=== PATIENT | female | born 1960 | race Caucasian/White ===

== ENCOUNTER → 2016-03-20 | Outpatient (CLI) | payer OTHER ==
--- NOTE | 2016-03-20 12:07 | XR ---
EXAMINATION TYPE: XR tibia fibula RT DATE OF EXAM: 03/20/2016 11:58 AM CLINICAL HISTORY: Trauma crushing injury with pain TECHNIQUE: Two views of the right leg are obtained. COMPARISON: None. FINDINGS: There is no acute fracture or dislocation seen in the right tibia or fibula. The right kn ee joint appears within normal limits. The Achilles tendon appears grossly intact on plain film. Soft tissue density suggests some fluid in the Kager's triangle deep to Achilles tendon. Accessory ossicl e posterior to the talus is noted. Small inferior calcaneal spur is present. The overlying soft tissu e appears unremarkable. IMPRESSION: There is no acute fracture or dislocation seen in the right tibia or fibula.
== END | disposition home or self-care (01) ==
LOC: RADXRMAIN 11:17
PROVIDERS: ATTEND Emergency Medicine
DX: S80.11XA Contusion of right lower leg, initial encounter (principal); X58.XXXA Exposure to other specified factors, initial encounter

== ENCOUNTER → 2016-06-03 | Outpatient (CLI) | payer BC ==
--- NOTE | 2016-06-03 11:44 | WWHP ---
DATE OF SERVICE: 06/03/2016 CHIEF COMPLAINT: The patient is here for her routine gynecologic exam and mammogram. HPI: This is a 55-year-old G2, P2 with an LMP of 2010. She is without gynecologic complaints and denies any postmenopausal bleeding. She has a known abdominal wall hernia and states that it really has not caused any significant problems. The patient states she does notice it feels a little larger when she lifts things. PAST MEDICAL HISTORY: Hypothyroidism, chronic hypertension, cardiac arrhythmia, seasonal allergies, sinus problems and right lower quadrant abdominal wall hernia. MEDICATIONS: 1. Synthroid 88 mcg daily. 2. Lisinopril 20 mg daily. 3. Flonase daily. 4. Calcium 500 mg daily. 5. Vitamin D 8000 units daily. 6. Vitamin E 400 units daily. 7. Garlic supplement daily. ALLERGIES: PENICILLIN, SULFA, and CODEINE. 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 FAMILY HISTORY: Unchanged from the 2016 H&P. REVIEW OF SYSTEMS: She has lost about 30 pounds over the last year with diet and exercise. She denies respiratory, cardiac, or GI problems. PHYSICAL EXAM: Blood pressure 131/84. Height 5 feet 6 inches. Weight 208 pounds. Temperature 98.2, pulse 75. This a well-developed, well-nourished white female who is alert and oriented x3 in no acute distress. HEENT is within normal limits. NECK: Supple without mass or thyromegaly. CHEST AND LUNGS: Clear to auscultation. HEART: Regular rate and rhythm. Breasts are without mass or discharge. Axillary exam is negative for adenopathy. BACK: Negative for CVA tenderness. ABDOMEN: Mildly obese with some firmness in the right lower quadrant consistent with her abdominal wall hernia and this unchanged from her exam last year. The rest of the abdomen is soft and nontender, without palpable masses. PELVIC EXAM: External genitalia reveals mild atrophy without lesions. Cervix and vagina reveal mild to moderate atrophy without lesions. The cervix appears slightly atrophic and the cervix is also somewhat stenotic secondary to atrophy. There is no evidence of prolapse. Bimanual exam: The uterus is midposition, nongravid size and nontender. There are no palpable adnexal masses or tenderness. Rectovaginal exam is negative for mass or tenderness and is negative for occult blood. EXTREMITIES: Nontender. IMPRESSION: 1. A 55-year-old menopausal female with normal gynecologic exam. 2. Right lower quadrant abdominal wall hernia, which is minimally symptomatic and stable from last year. 3. Family history of breast cancer. PLAN: 1. Pap smear was performed. 2. Self breast examination was discussed. 3. Mammogram will be done today. 4. Osteoporosis prevention was discussed. 5. She states she will plan on seeing Dr. Her, her surgeon, for the right abdominal wall hernia. 6. She will return in one year.
--- NOTE | 2016-06-04 10:47 | MM ---
Reason for exam: screening (asymptomatic). Last mammogram was performed 1 year ago. History: Patient is postmenopausal. Family history of breast cancer in sister at age 66 and premenopausal breast cancer in sister at age 50. Benign excisional biopsy of the right breast, August 07, 1999. Cyst aspiration of the right breast. Physical Findings: A clinical breast exam by your physician is recommended on an annual basis and results should be correlated with mammographic findings. MG 3D Screening Mammo W/Cad Bilateral CC and MLO view(s) were taken. Prior study comparison: May 29, 2015, bilateral MG 3d screening mammo w/cad. September 12, 2014, right breast MG diagnostic mammo RT w CAD. The breast tissue is heterogeneously dense. This may lower the sensitivity of mammography. Focal asymmetry in the upper outer right breast. This finding is changed when compared with previous exams. ASSESSMENT: Incomplete: need additional imaging evaluation, BI-RAD 0 RECOMMENDATION: Special view mammogram of the right breast. If lesion persists on supplemental views, image directed ultrasound is recommended. [facility] will attempt to contact patient to return for supplemental views and ultrasound if indicated.
== END ==
LOC: WWCWWP 09:16
PROVIDERS: ATTEND Obstetrics & Gynecology
DX: Z12.31 Encounter for screening mammogram for malignant neoplasm of breast (principal)
CPT/HCPCS: 77063; G0202

== ENCOUNTER → 2016-06-06 | Outpatient (CLI) | payer BC ==
--- NOTE | 2016-06-06 11:38 | MM ---
Reason for exam: additional evaluation requested from abnormal screening. Last mammogram was performed less than 1 month ago. History: Patient is postmenopausal. Family history of breast cancer in sister at age 66 and premenopausal breast cancer in sister at age 50. Benign excisional biopsy of the right breast, August 07, 1999. Cyst aspiration of the right breast. Physical Findings: Nurse did not find any significant physical abnormalities on exam. MG 3D Work Up W/Cad RT LM, spot compression CC, and spot compression MLO view(s) were taken of the right breast. Prior study comparison: June 03, 2016, bilateral MG 3d screening mammo w/cad. May 29, 2015, bilateral MG 3d screening mammo w/cad. Asymmetric breast tissue in the right upper outer quadrant. There is no discrete abnormality. These results were verbally communicated with the patient and result sheet given to the patient on 06/06/16. ASSESSMENT: Benign, BI-RAD 2 RECOMMENDATION: Return to routine screening mammogram schedule for both breasts.
== END | disposition home or self-care (01) ==
LOC: RADMAMWWP 10:22
PROVIDERS: ATTEND Obstetrics & Gynecology
DX: R92.8 Other abnormal and inconclusive findings on diagnostic imaging of breast (principal); Z80.3 Family history of malignant neoplasm of breast
CPT/HCPCS: G0206; G0279

== ENCOUNTER → 2017-06-30 | Outpatient (CLI) | payer BC ==
[2017-06-30 10:43] VITALS: BP 113/76; PULSE 72; RESP 16; TEMP 97.5; BMI 33.9
--- NOTE | 2017-06-30 11:40 | P.HPOB ---
History of Present Illness H&P Date: 06/30/17 Chief Complaint: The patient is here for her routine gynecologic exam and mammogram. This is a 56-year-old with an LMP of 2010. The patient is without gynecologic complaints and denies any postmenopausal bleeding. The patient has a family history of breast cancer in 2 sisters. One recently tested positive for CHEK2 gene mutation and was negative for BRCA testing according to the patient. The patient is interested in going for counseling and possible testing for this gene mutation. She does have a history of the right lower quadrant abdominal wall hernia. It has been causing her more problems with heavy lifting. She states the area can be very sore after heavy lifting. She has an appointment to see Dr. Larry Arreola on 07/23/2017. Review of Systems The patient's weight has been stable over the last year. She denies respiratory , cardiac, or G.I. problems. Past Medical History Past Medical History: Hypertension, Supraventricular Tachycardia (SVT), Thyroid Disorder (Hypothyroid) Additional Past Medical History / Comment(s): Right lower quadrant abdominal wall hernia. 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 She has had to section deliveries. History of Any Multi-Drug Resistant Organisms: None Reported Past Surgical History: Adenoidectomy, Breast Surgery (Benign breast lump removed in 1996), Section, Tonsillectomy Additional Past Surgical History / Comment(s): Colonoscopy 2009. Past Psychological History: No Psychological Hx Reported Smoking Status: Never smoker Past Alcohol Use History: Rare (0 to 3 per month.) Past Drug Use History: None Reported Additional History: She has been since 1980. 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 - Past Family History Sister(s) Family Medical History: Cancer (Breast cancer in 2 sisters. One tested positive for CHEK2 gene mutation.) Father Family Medical History: Cancer (Prostate) Mother Family Medical History: Cancer (Uterine cancer), Diabetes Mellitus Medications and Allergies Home Medications Medication Instructions Recorded Confirmed Type Levothyroxine Sodium [Synthroid] 120 mcg PO DAILY 12/07/14 06/30/17 History Lisinopril [Zestril] 20 mg PO DAILY 12/07/14 06/30/17 History Cholecalciferol (Vitamin D3) 10,000 unit PO DAILY 06/30/17 06/30/17 History [Vitamin D3] Metoprolol Succinate (ER) [Toprol 06/30/17 History XL] Allergies Allergy/AdvReac Type Severity Reaction Status Date / Time codeine Allergy Rash/Hives Verified 12/07/14 05:53 Penicillins Allergy Rash/Hives Verified 12/07/14 05:53 Sulfa (Sulfonamide Allergy Rash/Hives Verified 12/07/14 05:53 Antibiotics) Exam - Vital Signs Vital signs: Vital Signs Temp Pulse Resp BP 06/30/17 10:30 97.5 F L 72 16 113/76 Intake and Output 06/29/17 06/30/17 06/30/17 22:59 06:59 14:59 Other: Weight 95.254 kg Height 5'6", BMI 33.9. This is a well-developed well-nourished white female who is alert and oriented times 3 in no acute distress. HEENT: Within normal limits. NECK: Supple without mass or thyromegaly. CHEST AND LUNGS: Clear to auscultation. HEART: Regular rate and rhythm. BREASTS: Are without mass or discharge. AXILLARY EXAM: Negative for adenopathy. BACK: Negative for CVA tenderness. ABDOMEN: the abdomen is mildly obese. It is soft, nontender, with a right lower quadrant firmness consistent with an abdominal wall hernia. This is unchanged from last year. There are no other palpable masses.. PELVIC EXAM: Normal external genitalia with mild atrophy. Cervix and vagina appear normal mild atrophy. There is no unusual discharge. There is no evidence of prolapse. The uterus is midposition, nongravid size and nontender. There are no palpable adnexal masses or tenderness. RECTAL EXAM: rectovaginal exam is negative for mass or tenderness and is negative for occult blood. EXTREMITIES: Nontender. IMPRESSION: 1. 56-year-old menopausal female with normal gynecologic exam. 2. Right lower quadrant abdominal wall hernia which is stable on exam, but is slightly more symptomatic with heavy lifting. 3. Strong family history of breast cancer in 2 sisters. One sister tested positive for CHEK2 gene mutation. If the patient has this gene mutation, this would increase her risk for breast cancer and colon cancer. PLAN: 1. Pap smear was deferred since she had a normal one last year. 2. Screening mammogram will be done today. 3. We had a long discussion regarding her family history for breast cancer and the family history of the CHEK2 gene mutation. The patient would like to go for counseling and possible testing for this gene mutation. She is requesting a referral to [facility] cancer genetics department. We will make this referral. 4. Osteoporosis prevention was discussed. 5. She has an appointment to see Dr. Larry Arreola on 07/23/2017 for evaluation of her abdominal wall hernia. 6. She will return in one year.
--- NOTE | 2017-07-01 11:04 | MM ---
Reason for exam: screening (asymptomatic). Last mammogram was performed 1 year and 1 month ago. History: Patient is postmenopausal. Family history of breast cancer in sister at age 66 and premenopausal breast cancer in sister at age 50. Benign excisional biopsy of the right breast, August 07, 1999. Cyst aspiration of the right breast. Physical Findings: A clinical breast exam by your physician is recommended on an annual basis and results should be correlated with mammographic findings. MG 3D Screening Mammo W/Cad Bilateral CC and MLO view(s) were taken. Prior study comparison: June 06, 2016, right breast MG 3d work up w/cad RT. June 03, 2016, bilateral MG 3d screening mammo w/cad. The breast tissue is heterogeneously dense. This may lower the sensitivity of mammography. Benign calcifications. There is no discrete abnormality. No significant changes when compared with prior studies. ASSESSMENT: Benign, BI-RAD 2 RECOMMENDATION: Routine screening mammogram of both breasts in 1 year.
== END | disposition home or self-care (01) ==
LOC: WWCWWP 10:29
PROVIDERS: ATTEND Obstetrics & Gynecology
DX: Z12.31 Encounter for screening mammogram for malignant neoplasm of breast (principal)
CPT/HCPCS: 77063; 77067

== ENCOUNTER → 2018-07-23 | Outpatient (CLI) | payer OTHER ==
--- NOTE | 2018-07-23 07:56 | US ---
EXAMINATION TYPE: US liver DATE OF EXAM: 07/23/2018 COMPARISON: CT abdomen pelvis dated 03/27/2014 CLINICAL HISTORY: D18.03 Hemangioma of intraabdominal structure. Liver hemangioma EXAM MEASUREMENTS: Liver Length: 16.1 cm Gallbladder Wall: 0.2 cm CBD: 0.3 cm Right Kidney: 11.2 x 4.1 x 5.2cm Pancreas: visualized portions appear wnl Liver: hyperechoic area adjacent to GB = 4.1 x 3.0 x 3.5cm, probable hemangioma. This was seen on e CT of 2014 and measured up to 4.1 cm at that time as well when measured in a similar fashion. Gallbladder: multiple stones Evidence for sonographic Rodriguez's sign: no CBD: appears wnl Right Kidney: no evidence of hydronephrosis IMPRESSION: 1. Stable size of the hepatic hemangioma as seen on the CT of 03/17/2014. 2. Cholelithiasis without sonographic evidence of acute cholecystitis.
== END | disposition home or self-care (01) ==
LOC: RADUSWWP 06:49
PROVIDERS: ATTEND Family Medicine
DX: D18.03 Hemangioma of intra-abdominal structures (principal); K80.20 Calculus of gallbladder without cholecystitis without obstruction
CPT/HCPCS: 76705

== ENCOUNTER → 2018-08-06 | Day surgery (SDC) | payer OTHER ==
[2018-08-04 11:10] VITALS: BMI 34.2
[~2018-08-06] MED LIST: LACTATED RINGERS 1,000 ML IV SCH; LIDOCAINE 1% 20 ML VIAL (10MG/ML) FOR IV START INTRADERMA ONE; PROPOFOL 10 MG/ML 20 ML VIAL IV ONE
[2018-08-06 12:28] VITALS: TEMP 98.5
--- NOTE | 2018-08-06 12:52 | P.PCN ---
Date of Procedure: 08/06/18 Procedure(s) Performed: BRIEF HISTORY: Patient is a 57-year-old pleasant white female scheduled for an elective colonoscopy as a part of screening for colorectal neoplasia. PROCEDURE PERFORMED: Colonoscopy. PREOPERATIVE DIAGNOSIS: Screening for colon cancer.. IV sedation per Anesthesia. PROCEDURE: After informed consent was obtained, the patient, was brought into the endoscopy unit. IV sedation was administered by Anesthesia under continuous monitoring. Digital rectal examination was normal. Initially the Olympus CF-160 flexible video colonoscope was then inserted in the rectum, gradually advanced into the cecum without any difficulty. Careful examination was performed as the scope was gradually being withdrawn. Ileocecal valve and the appendiceal orifice were visualized and appeared normal. Prep was excellent. Mucosa of the cecum, ascending colon, transverse colon, descending colon, sigmoid colon, and rectum appeared normal. Retroflexion was performed in the rectum and no lesions were seen. The patient tolerated the procedure well. IMPRESSION: Normal-appearing colon from rectum to cecum with no evidence of colorectal neoplasia . RECOMMENDATIONS: Findings of this examination were discussed with the patient as well as her family. She was advised to have a repeat screening colonoscopy in 10 years.
[2018-08-06 12:55] VITALS: PULSE 71
[2018-08-06 13:03] VITALS: BP 122/82; RESP 16
== END ==
LOC: ORWHC2ENDO 11:44
PROVIDERS: ATTEND Internal Medicine Gastroenterology
DX: Z12.11 Encounter for screening for malignant neoplasm of colon (principal); I10 Essential (primary) hypertension; E78.5 Hyperlipidemia, unspecified; E07.9 Disorder of thyroid, unspecified; Z86.79 Personal history of other diseases of the circulatory system; Z79.890 Hormone replacement therapy; Z79.899 Other long term (current) drug therapy; Z88.0 Allergy status to penicillin; Z88.2 Allergy status to sulfonamides; Z88.5 Allergy status to narcotic agent
CPT/HCPCS: J2704; G0121; 45378

== ENCOUNTER → 2018-09-14 | Outpatient (CLI) | payer OTHER ==
[2018-09-14 09:38] VITALS: BP 120/84; PULSE 68; RESP 18; TEMP 98; BMI 33.9
--- NOTE | 2018-09-14 10:17 | P.HPOB ---
History of Present Illness H&P Date: 09/14/18 Chief Complaint: The patient is here for her routine gynecologic exam and ma mmogram. This is a 57 year old with an LMP of 2010. Patient is without gynecologic complaints and denies any postmenopausal bleeding. Review of Systems The patient's weight has been stable over the last year. She denies respiratory, cardiac, or G.I. problems. Past Medical History Past Medical History: Hypertension, Supraventricular Tachycardia (SVT), Thyroid Disorder Additional Past Medical History / Comment(s): Hypothyroidism, cardiac arrhythmia, seasonal allergies, sinus problems. 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 Pt is BRCA neg, CHEK2 neg. History of Any Multi-Drug Resistant Organisms: None Reported Past Surgical History: Adenoidectomy, Breast Surgery, Section, Hernia Repair, Tonsillectomy Additional Past Surgical History / Comment(s): Colonoscopy 2019(2nd, next 10yrs). Abdominal hernia repair 2018. section x2. Benign breast biopsy. Past Anesthesia/Blood Transfusion Reactions: No Reported Reaction Past Psychological History: No Psychological Hx Reported Smoking Status: Never smoker Past Alcohol Use History: Occasional (2 per month) Past Drug Use History: None Reported Additional History: she has been since 1980. 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 - Past Family History Sister(s) Family Medical History: Cancer Additional Family Medical History / Comment(s): Breast cancer and 2 sisters. One tested positive for CHEK2 mutation. Father Family Medical History: Cancer Additional Family Medical History / Comment(s): Prostate cancer. Mother Family Medical History: Cancer, Diabetes Mellitus Additional Family Medical History / Comment(s): Uterine cancer. Medications and Allergies Home Medications Medication Instructions Recorded Confirmed Type Levothyroxine Sodium [Synthroid] 125 mcg PO DAILY 12/07/14 09/14/18 History Lisinopril [Zestril] 20 mg PO HS 12/07/14 09/14/18 History Cholecalciferol (Vitamin D3) 10,000 unit PO DAILY 06/30/17 09/14/18 History [Vitamin D3] Metoprolol Succinate (ER) [Toprol 25 mg PO DAILY 06/30/17 09/14/18 History XL] Garlic 1 each PO DAILY 08/04/18 09/14/18 History Iron 18 mg PO Q7D 08/04/18 09/14/18 History Multivitamin/Iron/Folic Acid 1 each PO DAILY 08/04/18 09/14/18 History [Centrum Adults Tablet] Allergies Allergy/AdvReac Type Severity Reaction Status Date / Time codeine Allergy Nausea & Verified 09/14/18 09:40 Vomiting Penicillins Allergy Rash/Hives Verified 09/14/18 09:40 Sulfa (Sulfonamide Allergy Rash/Hives Verified 09/14/18 09:40 Antibiotics) Exam Vital Signs Temp Pulse Resp BP Pulse Ox 09/14/18 09:30 98.0 F 68 18 120/84 98 Intake and Output 09/13/18 09/14/18 09/14/18 22:59 06:59 14:59 Other: Weight 95.254 kg Height 5'6", weight 210 pounds, BMI 33.9. This is a well-developed well-nourished heavyset white female who is alert and oriented times 3 in no acute distress. HEENT: Within normal limits. NECK: Supple without mass or thyromegaly. CHEST AND LUNGS: Clear to auscultation. HEART: Regular rate and rhythm. BREASTS: Are without mass or discharge. AXILLARY EXAM: Negative for adenopathy. BACK: Negative for CVA tenderness. ABDOMEN: Soft, nontender, without palpable masses. PELVIC EXAM: Normal external genitalia with minimal atrophy. Cervix and vagina appear normal with mild atrophy. The cervix appears nulliparous and is slightly stenotic secondary to atrophy There is no unusual discharge. There is no evidence of prolapse. The uterus is midposition, nongravid size and nontender. There are no palpable adnexal masses or tenderness. RECTAL EXAM: rectovaginal exam is negative for mass or tenderness and is negative for occult blood. EXTREMITIES: Nontender. IMPRESSION: 1. 57-year-old menopausal female with normal gynecologic exam. 2. Strong family history of breast cancer in 2 sisters. One sister is positive for CHEK2 mutation. The patient is negative for this mutation and negative for BRCA. PLAN: 1. Pap smear was performed. 2. Self breast awareness was discussed with the patient. 3. Screening mammogram will be done today. 4. Osteoporosis prevention was discussed. I have stressed the importance of adequate calcium, vitamin D and regular exercise. Recommended amounts of calcium and vitamin D were also discussed. 5. She was advised to return in one year for her annual well woman exam.
--- NOTE | 2018-09-15 11:50 | MM ---
Reason for exam: screening (asymptomatic). Last mammogram was performed 1 year and 2 months ago. History: Patient is postmenopausal. Family history of breast cancer in sister at age 66 and premenopausal breast cancer in sister at age 50. Benign excisional biopsy of the right breast, August 07, 1999. Cyst aspiration of the right breast. Physical Findings: A clinical breast exam by your physician is recommended on an annual basis and results should be correlated with mammographic findings. MG 3D Screening Mammo W/Cad Bilateral CC and MLO view(s) were taken. Prior study comparison: June 30, 2017, bilateral MG 3d screening mammo w/cad. June 06, 2016, right breast MG 3d work up w/cad RT. The breast tissue is heterogeneously dense. This may lower the sensitivity of mammography. No suspicious abnormality. No significant changes when compared with prior studies. ASSESSMENT: Negative, BI-RAD 1 RECOMMENDATION: Routine screening mammogram of both breasts in 1 year.
== END | disposition home or self-care (01) ==
LOC: WWCWWP 09:11
PROVIDERS: ATTEND Obstetrics & Gynecology
DX: Z12.31 Encounter for screening mammogram for malignant neoplasm of breast (principal)
CPT/HCPCS: 77063; 77067

== ENCOUNTER → 2019-09-23 | Outpatient (CLI) | payer OTHER ==
--- NOTE | 2019-09-26 09:56 | MM ---
Reason for exam: screening (asymptomatic). Last mammogram was performed 1 year ago. History: Patient is postmenopausal. Family history of breast cancer in sister at age 66 and premenopausal breast cancer in sister at age 50. Benign excisional biopsy of the right breast, August 07, 1999. Cyst aspiration of the right breast. Physical Findings: A clinical breast exam by your physician is recommended on an annual basis and results should be correlated with mammographic findings. MG 3D Screening Mammo W/Cad Bilateral CC and MLO view(s) were taken. Prior study comparison: September 14, 2018, bilateral MG 3d screening mammo w/cad. June 30, 2017, bilateral MG 3d screening mammo w/cad. The breast tissue is heterogeneously dense. This may lower the sensitivity of mammography. There is no discrete abnormality. No significant changes when compared with prior studies. ASSESSMENT: Negative, BI-RAD 1 RECOMMENDATION: Routine screening mammogram of both breasts in 1 year.
== END | disposition home or self-care (01) ==
LOC: RADMAMWWP 07:36
PROVIDERS: ATTEND Obstetrics & Gynecology
DX: Z12.31 Encounter for screening mammogram for malignant neoplasm of breast (principal)
CPT/HCPCS: 77063; 77067

== ENCOUNTER → 2020-06-19 | Outpatient (CLI) | payer OTHER ==
[2020-06-19 14:13] VITALS: BP 132/92; PULSE 78; RESP 18; TEMP 98
--- NOTE | 2020-06-19 15:05 | P.HPOB ---
History of Present Illness H&P Date: 06/19/20 Chief Complaint: The patient is here for her routine gynecologic exam. This is a 59-year-old with an LMP of 2011. The patient states that about 2-1/2 months ago she noticed a pimple-like lesion on the underside of her breast on the left side. By the following month it did not seem to go away and she popped the lesion and a small amount of blood and pus came out of it. It now seems to have healed and there is a small purple spot where the lesion was. During the past 2 months since she was looking at the left breast much more frequently, she also noticed that when she examined the left breast she sometimes noticed some puckering around the left areola. This now seems less noticeable. Her last mammogram was on 09/23/2019 and was benign. She does have a family history of breast cancer in HER-2 sisters. The patient did undergo cancer genetics counseling and tested negative for BRCA and the CHEK 2 mutation. She is otherwise without complaints and denies any postmenopausal bleeding. Review of Systems The patient has gained 17 pounds over the last year. She attributes this to Covid weight and less activity. She is now trying to increase her activity. She denies respiratory, cardiac, or G.I. problems. Past Medical History Past Medical History: Hypertension, Supraventricular Tachycardia (SVT), Thyroid Disorder Additional Past Medical History / Comment(s): Hypothyroidism, cardiac arrhythmia, seasonal allergies, sinus problems. 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 Pt is BRCA neg, CHEK2 neg. History of Any Multi-Drug Resistant Organisms: None Reported Past Surgical History: Adenoidectomy, Breast Surgery, Section, Hernia Repair, Tonsillectomy Additional Past Surgical History / Comment(s): Colonoscopy 2019(2nd, next 10yrs). Abdominal hernia repair 2018. section x2. Benign breast biopsy. Past Anesthesia/Blood Transfusion Reactions: No Reported Reaction Past Psychological History: No Psychological Hx Reported Smoking Status: Never smoker Past Alcohol Use History: Occasional (1-2 per month) Past Drug Use History: None Reported Additional History: She has been since 1980. She is now retired. - Past Family History Sister(s) Family Medical History: Cancer Additional Family Medical History / Comment(s): Breast cancer and 2 sisters. One tested positive for CHEK2 mutation. Father Family Medical History: Cancer Additional Family Medical History / Comment(s): Prostate cancer. Mother Family Medical History: Cancer, Diabetes Mellitus Additional Family Medical History / Comment(s): Uterine cancer. Medications and Allergies Home Medications Medication Instructions Recorded Confirmed Type Levothyroxine Sodium [Synthroid] 125 mcg PO DAILY 12/07/14 06/19/20 History lisinopriL [Zestril] 20 mg PO HS 12/07/14 06/19/20 History Cholecalciferol (Vitamin D3) 10,000 unit PO DAILY 06/30/17 06/19/20 History [Vitamin D3] Metoprolol Succinate (ER) [Toprol 25 mg PO DAILY 06/30/17 06/19/20 History XL] Garlic 1 each PO DAILY 08/04/18 06/19/20 History Iron 18 mg PO Q7D 08/04/18 06/19/20 History Multivitamin/Iron/Folic Acid 1 each PO DAILY 08/04/18 06/19/20 History [Centrum Adults Tablet] Fish Oil/Dha/Epa [Fish Oil 1,200 1 each PO HS 06/19/20 06/19/20 History mg Fish Oil] Allergies Allergy/AdvReac Type Severity Reaction Status Date / Time codeine Allergy Nausea & Verified 06/19/20 14:06 Vomiting Penicillins Allergy Rash/Hives Verified 06/19/20 14:06 Sulfa (Sulfonamide Allergy Rash/Hives Verified 06/19/20 14:06 Antibiotics) Exam Vital Signs Temp Pulse Resp BP Pulse Ox 06/19/20 14:07 98.0 F 78 18 132/92 97 Intake and Output 06/18/20 06/19/20 06/19/20 22:59 06:59 14:59 Other: Weight 102.965 kg Height 5 feet 6 inches, weight 227 pounds, BMI 36.6. This is a well-developed well-nourished white female who is alert and oriented times 3 in no acute distress. HEENT: Within normal limits. NECK: Supple without mass or thyromegaly. CHEST AND LUNGS: Clear to auscultation. HEART: Regular rate and rhythm. BREASTS: Are without mass or discharge. There is a slightly discolored area of the skin measuring approximately 1.5 x 1.5 cm on the underside of the left breast. This is where she popped the pimple-like lesion about 6 weeks ago. This is now flat and well healed. This area appears benign. There are no palpable masses in this area and the skin and underlying tissue are not indurated. There is no unusual puckering or dimpling bilaterally. AXILLARY EXAM: Negative for adenopathy. BACK: Negative for CVA tenderness. ABDOMEN: Soft, nontender, without palpable masses. PELVIC EXAM: Normal external genitalia with mild atrophy. Cervix and vagina appear normal is mild atrophy. There is no unusual discharge. There is no evidence of prolapse. The uterus is midposition, nongravid size and nontender. There are no palpable adnexal masses or tenderness. RECTAL EXAM: Rectovaginal exam is negative for mass or tenderness and is negative for occult blood. EXTREMITIES: Nontender. IMPRESSION: 1. 59-year-old menopausal female with normal gynecologic exam. 2. Recent history of a pimple-like lesion on the underside of the left breast which she popped and this has now resolved and is well-healed. 3. Family history of breast cancer in 2 sisters. The patient tested negative for BRCA and for CHEK2, the mutation for which her sister tested positive. No evidence of breast cancer on exam today. PLAN: 1. Pap smear was deferred since she had a normal one on 09/14/2018. 2. Self breast awareness was discussed with the patient. 3. Screening mammogram will be due in mid September of this year and the order slip was given to the patient for this. 4. Osteoporosis prevention was discussed. I have stressed the importance of adequate calcium, vitamin D and regular exercise. Recommended amounts of calcium and vitamin D were also discussed. We will plan on doing a bone density test at her next yearly well woman examination. 5. She will check her own blood pressure on a regular basis at home and will follow-up with her PCP for blood pressure elevations. 6. She was advised to return in one year for her annual well woman exam.
== END ==
LOC: WWCWWP 13:57
PROVIDERS: ATTEND Obstetrics & Gynecology
DX: Z01.419 Encounter for gynecological examination (general) (routine) without abnormal findings (principal); E03.9 Hypothyroidism, unspecified; I10 Essential (primary) hypertension; Z80.3 Family history of malignant neoplasm of breast; Z88.0 Allergy status to penicillin; Z88.2 Allergy status to sulfonamides

== ENCOUNTER → 2020-09-04 | Outpatient (CLI) | payer OTHER ==
--- NOTE | 2020-09-04 08:52 | US ---
EXAMINATION TYPE: US liver DATE OF EXAM: 09/04/2020 COMPARISON: US 07/23/2018, CT 03/17/2014 CLINICAL HISTORY: D18.03 Hemangioma of intra-abdominal structures. EXAM MEASUREMENTS: Liver Length: 15.2 cm Gallbladder Wall: 0.27 cm CBD: 0.6 cm Right Kidney: 10.5 x 4.0 x 4.7 cm Pancreas: wnl as visualized Liver: Hyperechoic area measuring 3.2 x 2.3 x 2.5 cm, probable hemangioma. Heterogeneous Gallbladder: Multiple stones visualized Evidence for sonographic Rodriguez's sign: No CBD: wnl Right Kidney: No hydronephrosis or masses seen Large cystic area visualized left kidney measuring 9.5 x 6.9 x 9.1 cm IMPRESSION: 1. Probable hepatic hemangioma. 2. Large cyst left kidney.
== END | disposition home or self-care (01) ==
LOC: RADUSWWP 07:48
PROVIDERS: ATTEND Family Medicine
DX: D18.03 Hemangioma of intra-abdominal structures (principal); N28.1 Cyst of kidney, acquired
CPT/HCPCS: 76705

== ENCOUNTER → 2020-09-24 | Outpatient (CLI) | payer OTHER ==
--- NOTE | 2020-09-25 11:59 | MM ---
Reason for exam: screening (asymptomatic). Last mammogram was performed 1 year ago. History: Patient is postmenopausal. Family history of breast cancer in sister at age 66 and premenopausal breast cancer in sister at age 50. Benign excisional biopsy of the right breast, August 07, 1999. Cyst aspiration of the right breast. Took hormonal contraceptives for 12 years. Physical Findings: A clinical breast exam by your physician is recommended on an annual basis and results should be correlated with mammographic findings. MG 3D Screening Mammo W/Cad Bilateral CC and MLO view(s) were taken. Prior study comparison: September 23, 2019, bilateral MG 3d screening mammo w/cad. September 14, 2018, bilateral MG 3d screening mammo w/cad. There are scattered fibroglandular densities. There is chronic nodularity in the left breast. There is no discrete abnormality. ASSESSMENT: Benign, BI-RAD 2 RECOMMENDATION: Routine screening mammogram of both breasts in 1 year.
== END | disposition home or self-care (01) ==
LOC: RADMAMWWP 10:55
PROVIDERS: ATTEND Obstetrics & Gynecology
DX: Z12.31 Encounter for screening mammogram for malignant neoplasm of breast (principal); Z78.0 Asymptomatic menopausal state; Z80.3 Family history of malignant neoplasm of breast
CPT/HCPCS: 77063; 77067

== ENCOUNTER → 2021-11-12 | Outpatient (CLI) | payer OTHER ==
[2021-11-12 08:00] VITALS: BP 126/85; PULSE 66; RESP 17; TEMP 97.8
--- NOTE | 2021-11-12 08:37 | P.HPOB ---
History of Present Illness H&P Date: 11/12/21 Chief Complaint: The patient is here for her routine gynecologic exam and ma mmogram. This is a 60-year-old with an LMP of 2010. The patient is without gynecologic complaints and denies any postmenopausal bleeding. Review of Systems The patient has gained 4 pounds over the last year. She attributes some weight gain to the loss of 2 sisters during the past year. She denies respiratory, or cardiac problems. GI: She has had loose stools since taking clindamycin in August of this year. It seems to improve when she takes probiotics. Past Medical History Past Medical History: Hypertension, Supraventricular Tachycardia (SVT), Thyroid Disorder Additional Past Medical History / Comment(s): Hypothyroidism, cardiac arrhythmia, seasonal allergies, sinus problems. 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 Pt is BRCA neg, CHEK2 neg. History of Any Multi-Drug Resistant Organisms: None Reported Past Surgical History: Adenoidectomy, Breast Surgery, Section, Hernia Repair, Tonsillectomy Additional Past Surgical History / Comment(s): Colonoscopy 2019(2nd, next 10yrs). Abdominal hernia repair 2018. section x2. Benign breast biopsy. Past Anesthesia/Blood Transfusion Reactions: No Reported Reaction Past Psychological History: No Psychological Hx Reported Smoking Status: Never smoker Past Alcohol Use History: Occasional (2 per month) Past Drug Use History: None Reported Additional History: She has been since 1980 and is retired. - Past Family History Sister(s) Family Medical History: Cancer Additional Family Medical History / Comment(s): Breast cancer and 2 sisters. One tested positive for CHEK2 mutation. 2 sisters are , one of which had breast cancer. Father Family Medical History: Cancer Additional Family Medical History / Comment(s): Prostate cancer. Mother Family Medical History: Cancer, Diabetes Mellitus Additional Family Medical History / Comment(s): Uterine cancer. Medications and Allergies Home Medications Medication Instructions Recorded Confirmed Type Levothyroxine Sodium [Synthroid] 125 mcg PO DAILY 12/07/14 11/12/21 History lisinopriL [Zestril] 20 mg PO HS 12/07/14 11/12/21 History Cholecalciferol (Vitamin D3) 10,000 unit PO DAILY 06/30/17 11/12/21 History [Vitamin D3] Metoprolol Succinate (ER) [Toprol 25 mg PO DAILY 06/30/17 11/12/21 History XL] Garlic 1 each PO DAILY 08/04/18 11/12/21 History Iron 18 mg PO Q7D 08/04/18 11/12/21 History Multivitamin/Iron/Folic Acid 1 each PO DAILY 08/04/18 11/12/21 History [Centrum Adults Tablet] Fish Oil/Dha/Epa [Fish Oil 1,200 1 each PO HS 06/19/20 11/12/21 History mg Fish Oil] Vitamin E (Dl,Tocopheryl Acet) 400 mg PO DAILY 11/12/21 11/12/21 History [Vitamin E (1000 Iu = 450 MG)] Allergies Allergy/AdvReac Type Severity Reaction Status Date / Time clindamycin Allergy Diarrhea Unverified 11/12/21 08:00 codeine Allergy Nausea & Verified 11/12/21 07:55 Vomiting Penicillins Allergy Rash/Hives Verified 11/12/21 07:55 Sulfa (Sulfonamide Allergy Rash/Hives Verified 11/12/21 07:55 Antibiotics) Exam Vital Signs Temp Pulse Resp BP Pulse Ox 11/12/21 07:57 97.8 F 66 17 126/85 97 Intake and Output 11/11/21 11/12/21 11/12/21 22:59 06:59 14:59 Other: Weight 104.78 kg Height 5 feet 6 inches, weight 231 pounds, BMI 37.3. This is a well-developed well-nourished white female who is alert and oriented times 3 in no acute distress. HEENT: Within normal limits. NECK: Supple without mass or thyromegaly. CHEST AND LUNGS: Clear to auscultation. HEART: Regular rate and rhythm. BREASTS: Are without mass or discharge. AXILLARY EXAM: Negative for adenopathy. BACK: Negative for CVA tenderness. ABDOMEN: Soft, nontender, without palpable masses. PELVIC EXAM: Normal external genitalia with mild atrophy. Cervix and vagina appear normal with mild atrophy. The cervix is somewhat stenotic secondary to atrophy. There is no unusual discharge. There is no evidence of prolapse. The uterus is midposition, nongravid size and nontender. There are no palpable adnexal masses or tenderness. RECTAL EXAM: Rectovaginal exam is negative for mass or tenderness and is negative for occult blood. EXTREMITIES: Nontender. IMPRESSION: 1. 60-year-old menopausal female with normal gynecologic exam. 2. Family history of breast cancer in 2 sisters. The patient tested negative for BRCA and the Chek 2 mutation. PLAN: 1. Pap smear cotest was performed. 2. Self breast awareness was discussed with the patient. We have also discussed symptoms associated with inflammatory breast cancer. 3. Screening mammogram will be done today. 4. Osteoporosis prevention was discussed. I have stressed the importance of adequate calcium, vitamin D and regular exercise. Recommended amounts of calcium and vitamin D were also discussed. Baseline bone density test was recommended and the order slip was given to the patient for this. 5. Weight control was discussed. She states she plans to go back to [employer]. We have discussed the importance of good nutrition and regular exercise. 6. She has completed her Covid vaccination series and has received 2 boosters. 7. She was advised to return in one year for her annual well woman exam.
--- NOTE | 2021-11-12 10:07 | MM ---
Reason for Exam: Screening (asymptomatic). Last mammogram was performed 1 year(s) and 2 month(s) ago. Patient History: Menarche at age 13. First Full-Term at age 29. Postmenopausal. Patient used Hormonal Contraceptives for 12 years. Cyst Aspiration on the Right side. 08/07/1999, Benign Excisional Biopsy on the right side. Sister had breast cancer, age 66. Sister had breast cancer, age 50. Risk Values: Katelyn 5 year model risk: 5.9%. NCI Lifetime model risk: 26.8%. Prior Study Comparison: 09/14/2018 Bilateral Screening Mammogram, [facility]. 09/23/2019 Bilateral Screening Mammogram, [facility]. 09/24/2020 Bilateral Screening Mammogram, [facility]. Tissue Density: There are scattered fibroglandular densities. Findings: Analyzed By CAD. A few scattered benign-appearing tiny round calcifications bilaterally remain present. There is stable well-defined oval mass in the left breast middle depth outer upper aspect from several prior mammograms. No distortion or suspicious group of microcalcifications in either breast. Overall Assessment: Benign, BI-RAD 2 Management: Screening Mammogram of both breasts in 1 year. A clinical breast exam by your physician is recommended on an annual basis and results should be correlated with mammographic findings. Electronically signed and approved by: Andrey Gilman M.D.
== END ==
LOC: WWCWWP 07:48
PROVIDERS: ATTEND Obstetrics & Gynecology
DX: Z12.31 Encounter for screening mammogram for malignant neoplasm of breast (principal); E03.9 Hypothyroidism, unspecified; I10 Essential (primary) hypertension; R92.1 Mammographic calcification found on diagnostic imaging of breast; Z88.1 Allergy status to other antibiotic agents; Z88.5 Allergy status to narcotic agent; Z88.2 Allergy status to sulfonamides; Z88.0 Allergy status to penicillin; Z79.890 Hormone replacement therapy; Z80.3 Family history of malignant neoplasm of breast
CPT/HCPCS: 77063; 77067

== ENCOUNTER → 2021-11-25 | Outpatient (CLI) | payer OTHER | END | disposition home or self-care (01) | LOC: LABWHC1 08:19 | PROVIDERS: ATTEND Internal Medicine | DX: E03.8 Other specified hypothyroidism (principal); E55.9 Vitamin D deficiency, unspecified | CPT/HCPCS: 36415; 82306; 84443; 84481 ==

== ENCOUNTER 2022-08-10 12:28 | Emergency (ER) | payer OTHER ==
[2022-08-10 12:36] VITALS: BP 148/90; PULSE 85; RESP 18; TEMP 99
--- NOTE | 2022-08-10 14:04 | XR ---
KUB. HISTORY: Constipation COMPARISON: None. TECHNIQUE: 2 upright views of the abdomen were obtained. FINDINGS: The lung bases are clear. There is no free intraperitoneal air beneath the diaphragm. The bowel gas pattern is nonspecific and there is no evidence of obstruction. No large amount of stoo l within the colon. Multiple gallstones. The osseous structures are intact. IMPRESSION: 1. Nonspecific abdomen without evidence of free air or obstruction. 2. Cholelithiasis
[2022-08-10] MEDS ORDERED: MAGNESIUM CITRATE 296 ML BOTTLE PO ONE (15:15)
--- NOTE | 2022-08-10 15:16 | ED ---
Abdominal Pain HPI - General Chief Complaint: Abdominal Pain Stated Complaint: no Bowel movement in 4days Time Seen by Provider: 08/10/22 12:35 Source: patient Mode of arrival: ambulatory - History of Present Illness Initial Comments: 61-year-old female presents emergency department reporting decreased stool output. States that she does take iron once weekly. She took her iron tablets only 3 days apart this week. And states due to the medication she has been unable to have a bowel movement. Has significant pressure in her pelvis. She took Senokot yesterday and this morning. She additionally did a enema. States that she was only able to have a small amount of stool. She denies history of bowel surgery. No history of bowel surgery. No vomiting. No fevers. No other alleviating, precipitating or modifying factors - Related Data Home Medications Medication Instructions Recorded Confirmed Levothyroxine Sodium [Synthroid] 125 mcg PO DAILY 12/07/14 11/12/21 lisinopriL [Zestril] 20 mg PO HS 12/07/14 11/12/21 Cholecalciferol (Vitamin D3) 10,000 unit PO DAILY 06/30/17 11/12/21 [Vitamin D3] Metoprolol Succinate (ER) [Toprol 25 mg PO DAILY 06/30/17 11/12/21 XL] Garlic 1 each PO DAILY 08/04/18 11/12/21 Iron 18 mg PO Q7D 08/04/18 11/12/21 Multivitamin/Iron/Folic Acid 1 each PO DAILY 08/04/18 11/12/21 [Centrum Adults Tablet] Fish Oil/Dha/Epa [Fish Oil 1,200 1 each PO HS 06/19/20 11/12/21 mg Fish Oil] Vitamin E (Dl,Tocopheryl Acet) 400 mg PO DAILY 11/12/21 11/12/21 [Vitamin E (1000 Iu = 450 MG)] Allergies Allergy/AdvReac Type Severity Reaction Status Date / Time clindamycin Allergy Diarrhea Verified 08/10/22 12:36 codeine Allergy Nausea & Verified 08/10/22 12:36 Vomiting Penicillins Allergy Rash/Hives Verified 08/10/22 12:36 Sulfa (Sulfonamide Allergy Rash/Hives Verified 08/10/22 12:36 Antibiotics) Review of Systems ROS Statement: Those systems with pertinent positive or pertinent negative responses have been documented in the HPI. ROS Other: All systems not noted in ROS Statement are negative. Past Medical History Past Medical History: Hypertension, Supraventricular Tachycardia (SVT), Thyroid Disorder Additional Past Medical History / Comment(s): Hypothyroidism, cardiac arrhythmia, seasonal allergies, sinus problems. 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 Pt is BRCA neg, CHEK2 neg. History of Any Multi-Drug Resistant Organisms: None Reported Past Surgical History: Adenoidectomy, Breast Surgery, Section, Hernia R epair, Tonsillectomy Additional Past Surgical History / Comment(s): Colonoscopy 2019(2nd, next 10yrs). Abdominal hernia repair 2018. section x2. Benign breast biop sy, septum repair Past Anesthesia/Blood Transfusion Reactions: No Reported Reaction Past Psychological History: No Psychological Hx Reported Smoking Status: Former smoker Past Alcohol Use History: Occasional Past Drug Use History: None Reported - Past Family History Sister(s) Family Medical History: Cancer Additional Family Medical History / Comment(s): Breast cancer and 2 sisters. One tested positive for CHEK2 mutation. 2 sisters are , one of which had breast cancer. Father Family Medical History: Cancer Additional Family Medical History / Comment(s): Prostate cancer. Mother Family Medical History: Cancer, Diabetes Mellitus Additional Family Medical History / Comment(s): Uterine cancer. General Exam General appearance: alert, in no apparent distress Head exam: Present: atraumatic, normocephalic, normal inspection Eye exam: Present: normal appearance, PERRL, EOMI. Absent: scleral icterus, conjunctival injection, periorbital swelling ENT exam: Present: normal exam, mucous membranes moist Neck exam: Present: normal inspection. Absent: tenderness, meningismus, lymphadenopathy Respiratory exam: Present: normal lung sounds bilaterally. Absent: respiratory distress, wheezes, rales, rhonchi, stridor Cardiovascular Exam: Present: regular rate, normal rhythm, normal heart sounds. Absent: systolic murmur, diastolic murmur, rubs, gallop, clicks GI/Abdominal exam: Present: soft, normal bowel sounds. Absent: distended, tenderness, guarding, rebound, rigid Extremities exam: Present: normal inspection, full ROM, normal capillary refill. Absent: tenderness, pedal edema, joint swelling, calf tenderness Back exam: Present: normal inspection Neurological exam: Present: alert, oriented X3, CN II-XII intact Psychiatric exam: Present: normal affect, normal mood Skin exam: Present: warm, dry, intact, normal color. Absent: rash Course Vital Signs 08/10/22 12:33 Temperature 99.0 F Pulse Rate 85 Respiratory 18 Rate Blood Pressure 148/90 O2 Sat by Pulse 98 Oximetry Medical Decision Making - Medical Decision Making Was pt. sent in by a medical professional or institution (, VARINDER, FINISHED GARMENT INSPECTOR, urgent care, hospital, or alf...) When possible be specific @ -No Did you speak to anyone other than the patient for history (EMS, parent, family, police, friend...)? What history was obtained from this source @ -No Did you review nursing and triage notes (agree or disagree)? Why? @ -I reviewed and agree with nursing and triage notes Were old charts reviewed (outside hosp., previous admission, EMS record, old EKG, old radiological studies, urgent care reports/EKG's, alf records)? Report findings @ -No old charts were reviewed Differential Diagnosis (chest pain, altered mental status, abdominal pain women, abdominal pain men, vaginal bleeding, weakness, fever, dyspnea, syncope, headache, dizziness, GI bleed, back pain, seizure, CVA, palpatations, mental health, musculoskeletal)? @ -constipations, bowel obstruction, colon cancer EKG interpreted by me (3pts min.). @ -Not done X-rays interpreted by me (1pt min.). @ -yes, minimal stool CT interpreted by me (1pt min.). @ -None done U/S interpreted by me (1pt. min.). @ -None done What testing was considered but not performed or refused? (CT, X-rays, U/S, labs)? Why? @ -None What meds were considered but not given or refused? Why? @ -None Did you discuss the management of the patient with other professionals (professionals i.e. , VARINDER, FINISHED GARMENT INSPECTOR, lab, RT, psych nurse, social media community manager, worm picker, teacher, transportation officer, correctional case manager)? Give summary @ -No Was smoking cessation discussed for >3mins.? @ -No Was critical care preformed (if so, how long)? @ -No Were there social determinants of health that impacted care today? How? (Homelessness, low income, unemployed, alcoholism, drug addiction, transportation, low edu. Level, literacy, decrease access to med. care, senior living, rehab)? @ -No Was there de-escalation of care discussed even if they declined (Discuss DNR or withdrawal of care, Hospice)? DNR status @ -No What co-morbidities impacted this encounter? (DM, HTN, Smoking, COPD, CAD, Cancer, CVA, ARF, Chemo, Hep., AIDS, mental health diagnosis, sleep apnea, morbid obesity)? @ -None Was patient admitted / discharged? Hospital course, mention meds given and route, prescriptions, significant lab abnormalities, going to OR and other pertinent info. @ - On arrival patient was placed into room 17. A thorough history and physical exam was performed. X-ray was performed which does not demonstrate any signs of obstruction. No significant stool burden. Urinalysis demonstrates no infection. Results are discussed with the patient. She would like to attempt sedatives to help her have a bowel movement. She is given a bottle of magnesium citrate. Instructed to drink half the bottle. She does not have a bowel movement within 4 hours to drink the second half. Follow up with her doctor in 2-4 days and return for any new or worsening symptoms. Patient was agreeable as planned she was discharged in stable condition Undiagnosed new problem with uncertain prognosis? @ -No Drug Therapy requiring intensive monitoring for toxicity (Heparin, Nitro, Insulin, Cardizem)? @ -No Were any procedures done? @ -No Diagnosis/symptom? @ -acute abd bloating Acute, or Chronic, or Acute on Chronic? @ -acute Uncomplicated (without systemic symptoms) or Complicated (systemic symptoms)? @ -uncomplicated Side effects of treatment? @ -No Exacerbation, Progression, or Severe Exacerbation? @ -No Poses a threat to life or bodily function? How? (Chest pain, USA, CT, pneumonia, PE, COPD, DKA, ARF, appy, cholecystitis, CVA, Diverticulitis, Homicidal, Suicidal, threat to staff... and all critical care pts) @ -No - Lab Data Lab Results 08/10/22 Range/Units 15:15 Urine Color Colorless Urine Appearance Clear (Clear) Urine pH 5.5 (5.0-8.0) Ur Specific [place] 1.002 (1.001-1.035) Urine Protein Negative (Negative) Urine Glucose (UA) Negative (Negative) Urine Ketones Negative (Negative) Urine Blood Negative (Negative) Urine Nitrite Negative (Negative) Urine Bilirubin Negative (Negative) Urine Urobilinogen <2.0 (<2.0) mg/dL Ur Leukocyte Esterase Negative (Negative) Disposition Clinical Impression: Abdominal pain Disposition: HOME SELF-CARE Condition: Stable Instructions (If sedation given, give patient instructions): Abdominal Pain (ED) Additional Instructions: Please drink half of the magnesium citrate. If you do not have a bowel movement within 4 hours, drink the other half. Follow-up with your doctor in 2-4 days and return for any new or worsening symptoms Is patient prescribed a controlled substance at d/c from ED?: No Referrals: Dalia Ballard MD [Primary Care Provider] - 1-2 days Time of Disposition: 15:16
[2022-08-10 15:45] LABS: Appearance,Urine Clear (Clear); Bilirubin,Urine Negative (Negative); Blood,Urine Negative (Negative); Color,Urine Colorless; Glucose,Urine (UA) Negative (Negative); Ketones,Urine Negative (Negative); Leukocyte Esterase,Urine Negative (Negative); Nitrite,Urine Negative (Negative); PH, Urine 5.5 (5.0-8.0); Protein,Urine Negative (Negative); Specific Gravity,Urine 1.002 (1.001-1.035); Urobilinogen,Urine <2.0 mg/dL (<2.0)
== END 2022-08-10 15:58 | disposition home or self-care (01) ==
LOC: EC 12:28
DX: K80.20 Calculus of gallbladder without cholecystitis without obstruction (principal); I10 Essential (primary) hypertension; E03.9 Hypothyroidism, unspecified; Z79.890 Hormone replacement therapy; Z79.899 Other long term (current) drug therapy; Z87.891 Personal history of nicotine dependence; Z88.5 Allergy status to narcotic agent; Z88.0 Allergy status to penicillin; Z88.2 Allergy status to sulfonamides; Z88.8 Allergy status to other drugs, medicaments and biological substances; Z88.1 Allergy status to other antibiotic agents
CPT/HCPCS: 74018; 81003; 99284

== ENCOUNTER → 2022-11-10 | Outpatient (CLI) | payer OTHER ==
[2022-11-10 16:39] LABS: T4, Free (Free Thyroxine) 1.44 ng/dL (0.80-1.80)
== END | disposition home or self-care (01) ==
LOC: LABWHC1 10:56
PROVIDERS: ATTEND Internal Medicine
DX: E03.9 Hypothyroidism, unspecified (principal); E55.9 Vitamin D deficiency, unspecified
CPT/HCPCS: 36415; 82306; 84439; 84443

== ENCOUNTER → 2022-12-02 | Outpatient (CLI) | payer OTHER ==
--- NOTE | 2022-12-02 14:31 | BD ---
EXAMINATION TYPE: Axial Bone Density DATE OF EXAM: 12/02/2022 CLINICAL HISTORY: 62 years old Female. ICD-10 CODE: Z78.0 ASYMPTOMATIC MENOPAUSAL STATE Height: 66 Weight: 227.5 FRAX RISK QUESTIONS: Alcohol (3 or more units per day): no Family History (Parent hip fracture): no Glucocorticoids (More than 3mos): no (Ex: prednisone, prednisolone, methylprednisolone, dexamethasone, and hydrocortisone). History of Fracture in Adulthood: no Secondary Osteoporosis: 1. Type 1 Diabetes: no 2. Hyperthyroidism: no 3. Menopause before 45: no 4. Malnutrition: no 5. Chronic liver disease: no Rheumatoid Arthritis: no Current Tobacco Use: no RISK FACTORS HISTORY OF: Active: yes Diet low in dairy products/other sources of calcium: yes Postmenopausal woman: yes MEDICATIONS: Thyroid Medications: synthroid How Long: since 1999 Additional History: EXAM MEASUREMENTS: Bone mineral densitometry was performed using the Billetto System. Bone mineral density as measured about the Lumbar spine is: ----- L1-L4(G/cm2): 0.997 T Score Values are as follows: ----- L1: -1.3 ----- L2: -1.8 ----- L3: -1.5 ----- L4: -1.6 ----- L1-L4: -1.5 Z Score Values are as follows: ----- L1: -1.2 ----- L2: -1.6 ----- L3: -1.3 ----- L4: -1.4 ----- L1-L4: -1.3 Bone mineral density : baseline Bone mineral density about the R hip (g/cm2): 0.989 Bone mineral density about the L hip (g/cm2): 0.951 T Score values are as follows: -----R Neck: -1.2 -----L Neck: -1.1 -----R Total: -0.1 -----L Total: -0.4 Z Score values are as follows: -----R Neck: -0.6 -----L Neck: -0.5 -----R Total: 0.0 -----L Total: -0.3 Bone mineral density : baseline FRAX%s: The graph provided illustrates a 7.0% chance for a major osteoporotic fx and a 0.4% chance fo r the hips probability for fx in 10 years time. IMPRESSION: Normal (Values between +1 and -1 indicate normal bone mass). Consider repeating this study in 5 year s or sooner if there is some new clinical indication. NOTE: T-SCORE=SD OF THE YOUNG ADULT MEAN.
--- NOTE | 2022-12-03 09:49 | P.PN ---
Progress Note - Text Progress Note Date: 12/03/22 OUTPATIENT FOLLOW-UP NOTE TEST(S)/RESULTS: Test results from 12/02/2022 by bone density test showing osteopenia. It was initially read as normal, but I did review this with Dr. Narayan, the radiologist, who confirms that it should read osteopenia and he will make an addendum. METHOD OF NOTIFICATION: A message with this result was left on the patient's voicemail on 12/03/2022. PATIENT COMMENTS: DIAGNOSIS: Osteopenia DISCUSSION: I stressed the importance of taking in adequate calcium, vitamin D, and regular exercise. We will plan on repeating this in approximately 2-3 years. PLAN: As above. The patient has also asked about getting an MRI of the breasts because of her high risk of breast cancer. Her lifetime risk for breast cancer is 26.1%. Her Katelyn 5 year risk is 6.0%. She will continue to do yearly mammograms. We will order MRI testing of the breast yearly and this will be alternated every 6 months with the mammograms.
== END | disposition home or self-care (01) ==
LOC: RADBDWWP 08:16
PROVIDERS: ATTEND Obstetrics & Gynecology
DX: M85.89 Other specified disorders of bone density and structure, multiple sites (principal); Z78.0 Asymptomatic menopausal state
CPT/HCPCS: 77080

== ENCOUNTER → 2023-04-16 | Outpatient (CLI) | payer OTHER ==
--- NOTE | 2023-04-16 11:57 | CT ---
EXAMINATION: CT ABDOMEN AND PELVIS WITH IV CONTRAST DATE OF EXAMINATION: 04/16/2023. COMPARISON: 03/17/2014.. INDICATION: Right lower quadrant pain. PROCEDURE: Axial CT of the abdomen and pelvis was performed with contrast and sagittal and coronal reformatted images were performed. CT dose lowering techniques were used, to include: automated expos ure control, adjustment for patient size, and/or use of iterative reconstruction. 100 mL of Isovue 30 0 was given intravenously. FINDINGS: LOWER CHEST : The visualized lung bases are clear. There are no pleural or pericardial effusions. ABDOMEN: Liver and Biliary system: Heterogeneous mass within the left lobe of the liver adjacent to the gallb ladder fossa measures 3.2 cm in diameter and previously measured up to 4.47 m in diameter. This is li darling benign given its long-term stability and decrease in size.. Adrenal glands: Normal. Kidneys and ureters: 9.2 cm cyst in the inferior pole of the left kidney. The kidneys otherwise appea r unremarkable. Spleen: Normal. Pancreas: Normal. Gallbladder: Numerous gallstones are seen within the gallbladder.. Lymph nodes, Peritoneum and mesentery: There is no mesenteric or retroperitoneal lymphadenopathy. Gastrointestinal tract: There are no dilated loops of bowel or free intraperitoneal air. The appe ndix is normal. There is moderate sigmoid colonic diverticulosis without evidence of diverticulitis. Aorta/IVC: No aortic aneurysm. IVC normal. Abdominal wall: There is a small fat-containing umbilical hernia and small fat-containing ventral he rnia in the infraumbilical region.. PELVIS: Fluid: There is no free fluid in the pelvis. Lymph Nodes: There is no pelvic or inguinal lymphadenopathy.. Urinary bladder: Normal. BONES: There are no osseous destructive lesions.. ADDITIONAL SIGNIFICANT FINDINGS: None. IMPRESSION: 1. No acute process seen within the abdomen or pelvis. 2. Small fat-containing focal hernia and small fat-containing infraumbilical ventral hernia. These fi ndings are very similar to the previous examination. 3. Cholelithiasis.
== END | disposition home or self-care (01) ==
LOC: RADCTMAIN 09:27
PROVIDERS: ATTEND Family Medicine
DX: R10.31 Right lower quadrant pain (principal); K43.9 Ventral hernia without obstruction or gangrene; K80.20 Calculus of gallbladder without cholecystitis without obstruction
CPT/HCPCS: 74177; Q9967

== ENCOUNTER → 2023-04-22 | Outpatient (CLI) | payer OTHER ==
--- NOTE | 2023-04-22 13:57 | CT ---
EXAMINATION TYPE: CT sinus wo con DATE OF EXAM: 04/22/2023 COMPARISON: None available. HISTORY: Congestion. CT DLP: 508 mGycm. Automated Exposure Control for Dose Reduction was Utilized. TECHNIQUE: CT scan of the sinuses is performed without contrast, axial images are obtained, coronal r eformatted images are also reviewed. FINDINGS: The paranasal sinuses including the frontal, ethmoid, sphenoid, and maxillary sinuses bila terally are well-aerated without abnormal opacification. The ostiomeatal complex is patent bilateral ly on the coronal images. Visualized portion of mastoid air cells show no abnormal opacification. The globes are intact bilate rally. IMPRESSION: The sinuses are clear and the ostiomeatal complex is patent bilaterally.
== END | disposition home or self-care (01) ==
LOC: RADCTMAIN 10:54
PROVIDERS: ATTEND Otolaryngology
DX: G50.1 Atypical facial pain (principal)
CPT/HCPCS: 70486

== ENCOUNTER → 2023-12-10 | Outpatient (CLI) | payer OTHER ==
[2023-12-10 16:14] LABS: T4, Free (Free Thyroxine) 1.6 ng/dL (0.80-1.80)
== END | disposition home or self-care (01) ==
LOC: LABWHC1 09:58
PROVIDERS: ATTEND Internal Medicine
DX: E03.8 Other specified hypothyroidism (principal); E55.9 Vitamin D deficiency, unspecified
CPT/HCPCS: 36415; 82306; 84439; 84443

== ENCOUNTER 2024-02-01 07:42 | Observation (INO) | payer OTHER ==
--- NOTE | 2024-02-01 07:54 | ED ---
Chest Pain HPI - General Chief Complaint: Chest Pain Stated Complaint: Chest pain Time Seen by Provider: 02/01/24 07:49 Source: patient, RN notes reviewed Mode of arrival: ambulatory Limitations: no limitations - History of Present Illness Initial Comments: 63-year-old female presents emergency department chief complaint of right-sided chest pain. Patient states pain started yesterday but intensified this morning. Patient states that the pain woke her up around 5 AM. She states that sharp central to right sternal pain. Patient denies any fevers cough or cold-like symptoms she states it is difficult to catch her breath she states that her heart rate was elevated last night in which she took an extra metoprolol she does have a history of SVT and recently found out her tricuspid valve is only bicuspid so she has been more concerned. Patient denies any leg pain leg swelling she has no history of DVT or PE. - Related Data Home Medications Medication Instructions Recorded Confirmed lisinopriL [Zestril] 20 mg PO HS 12/07/14 02/01/24 Metoprolol Succinate (ER) [Toprol 25 mg PO DAILY 06/30/17 02/01/24 XL] Levothyroxine Sodium [Synthroid] 125 mcg PO DAILY 02/01/24 02/01/24 Allergies Allergy/AdvReac Type Severity Reaction Status Date / Time Penicillins Allergy Rash/Hives Verified 02/01/24 09:01 Sulfa (Sulfonamide Allergy Rash/Hives Verified 02/01/24 09:01 Antibiotics) sulfamethoxazole Allergy Rash/Hives Verified 02/01/24 09:01 [From Bactrim] trimethoprim [From Bactrim] Allergy Rash/Hives Verified 02/01/24 09:01 clindamycin AdvReac c-diff Verified 02/01/24 09:01 codeine AdvReac Nausea & Verified 02/01/24 09:01 Vomiting Review of Systems ROS Statement: Those systems with pertinent positive or pertinent negative responses have been documented in the HPI. ROS Other: All systems not noted in ROS Statement are negative. EKG Findings - EKG Comments: EKG Findings:: EKG performed at 7: 56 sinus rhythm rate of 65 [place] 174 QRS 89 QT/QTc 406/417 - EKG Results: EKG: interpreted by LESTER Past Medical History Past Medical History: Hypertension, Supraventricular Tachycardia (SVT), Thyroid Disorder Additional Past Medical History / Comment(s): Hypothyroidism, cardiac arrhythmia, seasonal allergies, sinus problems. 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 Pt is BRCA neg, CHEK2 neg. History of Any Multi-Drug Resistant Organisms: None Reported Past Surgical History: Adenoidectomy, Breast Surgery, Section, Hernia Repair, Tonsillectomy Additional Past Surgical History / Comment(s): Colonoscopy 2019(2nd, next 10yrs). Abdominal hernia repair 2018. section x2. Benign breast biopsy, septum repair Past Anesthesia/Blood Transfusion Reactions: No Reported Reaction Past Psychological History: No Psychological Hx Reported Smoking Status: Never smoker Past Alcohol Use History: Occasional Past Drug Use History: None Reported - Past Family History Sister(s) Family Medical History: Cancer Additional Family Medical History / Comment(s): Breast cancer in 2 sisters. One tested positive for CHEK2 mutation. 2 sisters are , one of which had breast cancer the other had brain cancer. Father Family Medical History: Cancer Additional Family Medical History / Comment(s): Prostate cancer. Mother Family Medical History: Cancer, Diabetes Mellitus Additional Family Medical History / Comment(s): Uterine cancer. General Exam Limitations: no limitations General appearance: alert, in no apparent distress Head exam: Present: atraumatic, normocephalic, normal inspection Eye exam: Present: normal appearance, PERRL, EOMI. Absent: scleral icterus, conjunctival injection, periorbital swelling ENT exam: Present: normal exam, mucous membranes moist Neck exam: Present: normal inspection, full ROM. Absent: tenderness, meningismus, lymphadenopathy Respiratory exam: Present: normal lung sounds bilaterally. Absent: respiratory distress, wheezes, rales, rhonchi, stridor Cardiovascular Exam: Present: regular rate, normal rhythm, normal heart sounds. Absent: systolic murmur, diastolic murmur, rubs, gallop, clicks GI/Abdominal exam: Present: soft, normal bowel sounds. Absent: distended, tenderness, guarding, rebound, rigid Back exam: Absent: CVA tenderness (R), CVA tenderness (L) Neurological exam: Present: alert Skin exam: Present: warm, dry, intact, normal color. Absent: rash Course Vital Signs 02/01/24 07:44 Temperature 97.4 F L Pulse Rate 79 Respiratory 18 Rate Blood Pressure 148/97 O2 Sat by Pulse 99 Oximetry Chest Pain MDM - MDM Was pt. sent in by a medical professional or institution (, PA, SAFETY TRAINER, urgent care, hospital, or shelter...) When possible be specific @ -No Did you speak to anyone other than the patient for history (EMS, parent, family, police, friend...)? What history was obtained from this source @ -No Did you review nursing and triage notes (agree or disagree)? Why? @ -I reviewed and agree with nursing and triage notes Were old charts reviewed (outside hosp., previous admission, EMS record, old E KG, old radiological studies, urgent care reports/EKG's, shelter records)? Report findings @ -No old charts were reviewed Differential Diagnosis (chest pain, altered mental status, abdominal pain women, abdominal pain men, vaginal bleeding, weakness, fever, dyspnea, syncope, headache, dizziness, GI bleed, back pain, seizure, CVA, palpatations, mental health, musculoskeletal)? @ -[Differential Chest Pain: Stable Angina, Unstable Angina, STEMI, NSTEMI Aortic Dissection, Pneumothorax, Musculoskeletal, Esophageal Spasm GERD, Cholecystitis, Pancreatitis, Zoster, this is not meant to be an all-inclusive list. EKG interpreted by me (3pts min.). @ -As above X-rays interpreted by me (1pt min.). @ -Chest x-ray shows no acute cardiopulmonary process. CT interpreted by me (1pt min.). @ -None done U/S interpreted by me (1pt. min.). @ -None done What testing was considered but not performed or refused? (CT, X-rays, U/S, labs)? Why? @ -None What meds were considered but not given or refused? Why? @ -None Did you discuss the management of the patient with other professionals (professionals i.e. , VARINDER, SAFETY TRAINER, lab, RT, psych nurse, medical social consultant, thoroughbred horse farm manager, teacher, gift officer, residential case manager)? Give summary @ -EMH for admission Was smoking cessation discussed for >3mins.? @ -No Was critical care preformed (if so, how long)? @ -No Were there social determinants of health that impacted care today? How? (Homelessness, low income, unemployed, alcoholism, drug addiction, transportation, low edu. Level, literacy, decrease access to med. care, fdc, rehab)? @ -No Was there de-escalation of care discussed even if they declined (Discuss DNR or withdrawal of care, Hospice)? DNR status @ -No What co-morbidities impacted this encounter? (DM, HTN, Smoking, COPD, CAD, Cancer, CVA, ARF, Chemo, Hep., AIDS, mental health diagnosis, sleep apnea, morbid obesity)? @ -Hypertension Was patient admitted / discharged? Hospital course, mention meds given and route, prescriptions, significant lab abnormalities, going to OR and other pertinent info. @ -[Admitted patient presented for right-sided substernal chest pain initial workup was negative. Patient does have multiple risk factors will be admitted for cardiac rule out Undiagnosed new problem with uncertain prognosis? @ -No Drug Therapy requiring intensive monitoring for toxicity (Heparin, Nitro, Insulin, Cardizem)? @ -No Were any procedures done? @ -No Diagnosis/symptom? @ -Chest pain Acute, or Chronic, or Acute on Chronic? @ -Acute Uncomplicated (without systemic symptoms) or Complicated (systemic symptoms)? @ -Complicated Side effects of treatment? @ -No Exacerbation, Progression, or Severe Exacerbation? @ -No Poses a threat to life or bodily function? How? (Chest pain, USA, [place], pneumonia, PE, COPD, DKA, ARF, appy, cholecystitis, CVA, Diverticulitis, Homicidal, Suicidal, threat to staff... and all critical care pts) @ -Yes possible ACS causing risk of cardiac function Disposition Clinical Impression: Chest pain Disposition: ADMITTED IP TO THIS HOSP Condition: Fair Referrals: Dalia Ballard MD [Primary Care Provider] - 1-2 days Time of Disposition: 09:12
[2024-02-01] MEDS: ASPIRIN 81 MG PO STA (08:08)
[2024-02-01] MEDS: SODIUM CHLORIDE 0.9% 500 ML 500 ML IV STA (08:08)
[2024-02-01 08:18] LABS: Basophils % (A) 1 %; Eosinophils # (A) 0.1 k/uL (0-0.7); Eosinophils % (A) 2 %; HCT 43.9 % (34.0-46.0); HGB 14.2 gm/dL (11.4-16.0); Lymphocytes # (A) 2.4 k/uL (1.0-4.8); Lymphocytes % (A) 33 %; MCH 28.3 pg (25.0-35.0); MCHC 32.5 g/dL (31.0-37.0); Mean Platelet Volume 9.5; Monocytes # (A) 0.5 k/uL (0-1.0); Monocytes % (A) 7 %; Neutrophils # (A) 4.2 k/uL (1.3-7.7); Neutrophils % (A) 57 %; Platelet Count 240 k/uL (150-450); RBC 5.04 m/uL (3.80-5.40); RDW 13.8 % (11.5-15.5); WBC 7.4 k/uL (3.8-10.6)
[2024-02-01 08:30] LABS: ALT 23 U/L (4-34); AST 25 U/L (14-36); African American GFR (CKD) >90 (>60 ml/min/1.73 sqM); Albumin 4.5 g/dL (3.5-5.0); Alkaline Phosphatase 115 U/L (38-126); Anion Gap 8 mmol/L; Blood Urea Nitrogen 12 mg/dL (7-17); Calcium 9.8 mg/dL (8.4-10.2); Carbon Dioxide 23 mmol/L (22-30); Chloride 109 mmol/L (98-107); Glucose 97 mg/dL (74-99); Non-African American GFR(CKD) >90 (>60 ml/min/1.73 sqM); Potassium 3.8 mmol/L (3.5-5.1); Sodium 140 mmol/L (137-145); Total Bilirubin 0.6 mg/dL (0.2-1.3); Total Protein 7.1 g/dL (6.3-8.2)
--- NOTE | 2024-02-01 08:38 | XR ---
EXAMINATION TYPE: XR chest 2V DATE OF EXAM: 02/01/2024 8:24 AM COMPARISON: 12/07/2014 CLINICAL INDICATION: Female, 63 years old with history of Chest Pain, , TECHNIQUE: PA and lateral views FINDINGS: Heart normal size. Aorta and pulmonary vasculature within normal limits. Mild hyperinflation may rela te to depth of inspiration or underlying emphysema. No consolidation or pleural effusion. IMPRESSION: No acute cardiopulmonary process. [facility], , 02/01/2024 8:36 AM
[2024-02-01 08:40] LABS: Partial Thromboplastin Time 24.9 sec (22.0-30.0); Prothrombin Time 10.9 sec (10.0-12.5)
[2024-02-01] MEDS ORDERED: NITROGLYCERIN SL TABS 0.4 MG TAB SUBLINGUAL PRN (09:12)
[2024-02-01 10:43] VITALS: RESP 17
--- NOTE | 2024-02-01 12:10 | P.HPIM ---
History of Present Illness This is a pleasant 63 years old female who presents because of chest pain started yesterday about 7/10 in severity Patient states her pain is on the right side radiates little bit to her right side of the neck. Anderson like sharp with no precipitating factors but the pain feels better with aspirin No dyspnea or coughing No other GI/ symptoms, no neurological symptoms. She denies smoking alcohol or illicit drugs. Her PCP is Dr. Ballard Hemodynamically stable She has unremarkable CBC, BMP, LFT, INR, troponin less than 0.012. D-dimer is negative at 0.34 Chest x-ray showing no acute process EKG showing sinus rhythm at [address]-T changes Review of Systems Review of systems CONSTITUTIONAL: No fever, no malaise, no fatigue. HEENT: No recent visual problems or hearing problems. Denied any sore throat. CARDIOVASCULAR: No orthopnea, PND, no palpitations, no syncope. PULMONARY: No shortness of breath, no cough, no hemoptysis. GASTROINTESTINAL: No diarrhea, no nausea, no vomiting, no abdominal pain. Normoactive bowel sounds. NEUROLOGICAL: No headaches, no weakness, no numbness. HEMATOLOGICAL: Denies any bleeding or petechiae. GENITOURINARY: Denies any burning micturition, frequency, or urgency. MUSCULOSKELETAL/RHEUMATOLOGICAL: Denies any joint pain, swelling, or any muscle pain. ENDOCRINE: Denies any polyuria or polydipsia. Past Medical History Past Medical History: Hypertension, Supraventricular Tachycardia (SVT), Thyroid Disorder Additional Past Medical History / Comment(s): Hypothyroidism, cardiac arrhythmia, seasonal allergies, sinus problems. 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 Pt is BRCA neg, CHEK2 neg. History of Any Multi-Drug Resistant Organisms: None Reported Past Surgical History: Adenoidectomy, Breast Surgery, Section, Hernia Repair, Tonsillectomy Additional Past Surgical History / Comment(s): Colonoscopy 2019(2nd, next 10yrs). Abdominal hernia repair 2018. section x2. Benign breast biopsy, septum repair Past Anesthesia/Blood Transfusion Reactions: No Reported Reaction Past Psychological History: No Psychological Hx Reported Smoking Status: Never smoker Past Alcohol Use History: Occasional Past Drug Use History: None Reported - Past Family History Sister(s) Family Medical History: Cancer Additional Family Medical History / Comment(s): Breast cancer in 2 sisters. One tested positive for CHEK2 mutation. 2 sisters are , one of which had breast cancer the other had brain cancer. Father Family Medical History: Cancer Additional Family Medical History / Comment(s): Prostate cancer. Mother Family Medical History: Cancer, Diabetes Mellitus Additional Family Medical History / Comment(s): Uterine cancer. Medications and Allergies Home Medications Medication Instructions Recorded Confirmed Type lisinopriL [Zestril] 20 mg PO HS 12/07/14 02/01/24 History Metoprolol Succinate (ER) [Toprol 25 mg PO DAILY 06/30/17 02/01/24 History XL] Levothyroxine Sodium [Synthroid] 125 mcg PO DAILY 02/01/24 02/01/24 History Allergies Allergy/AdvReac Type Severity Reaction Status Date / Time Penicillins Allergy Rash/Hives Verified 02/01/24 09:01 Sulfa (Sulfonamide Allergy Rash/Hives Verified 02/01/24 09:01 Antibiotics) sulfamethoxazole Allergy Rash/Hives Verified 02/01/24 09:01 [From Bactrim] trimethoprim [From Bactrim] Allergy Rash/Hives Verified 02/01/24 09:01 clindamycin AdvReac c-diff Verified 02/01/24 09:01 codeine AdvReac Nausea & Verified 02/01/24 09:01 Vomiting Physical Exam Vitals: Vital Signs Temp Pulse Pulse Resp BP BP Pulse Ox 02/01/24 10:41 97.6 F 59 L 17 135/84 100 02/01/24 09:43 68 18 138/76 96 02/01/24 07:44 97.4 F L 79 18 148/97 99 Intake and Output 01/31/24 02/01/24 02/01/24 22:59 06:59 14:59 Other: Weight 104.326 kg -GENERAL: The patient is alert and oriented x3, not in any acute distress. Well developed, well nourished. Obese HEENT: Pupils are round and equally reacting to light. EOMI. No scleral icterus. No conjunctival pallor. Normocephalic, atraumatic. No pharyngeal erythema. No thyromegaly. CARDIOVASCULAR: S1 and S2 present. No murmurs, rubs, or gallops. PULMONARY: Chest is clear to auscultation, no wheezing , no crackles. ABDOMEN: Soft, nontender, nondistended, normoactive bowel sounds. No palpable organomegaly. MUSCULOSKELETAL: No joint swelling or deformity. EXTREMITIES: No cyanosis, clubbing, or pedal edema. NEUROLOGICAL: Gross neurological examination did not reveal any focal deficits. SKIN: No rashes. no petechiae. Results CBC & Chem 7: 02/01/24 08:05 02/01/24 08:05 Labs: Abnormal Lab Results - Last 24 Hours (Table) 02/01/24 Range/Units 08:05 Chloride 109 H (98-107) mmol/L Thrombosis Risk Factor Assmnt - Choose All That Apply Any of the Below Risk Factors Present?: No Other Risk Factors: Yes Each Risk Factor Represents 2 Points: Age 61-74 years Thrombosis Risk Factor Assessment Total Risk Factor Score: 2 Thrombosis Risk Factor Assessment Level: Low Risk Assessment and Plan Assessment: Chest pain could be musculoskeletal. Rule out cardiac causes. D-dimer is negative at 0.340 Hypertension History of SVT Hypothyroidism Plan: Continue with aspirin 325 mg added Continue with her home dose of lisinopril metoprolol Cardiology consult Labs and medication were reviewed.. Continue same treatment. Continue with symptomatic treatment. Resume home medication. Monitor labs and vitals. DVT and GI prophylaxis. Further recommendations as per clinical course of the patient DVT prophylaxis: Subcutaneous heparin GI Prophylaxis: Pepcid PT/OT: Pending Prognosis is guarded
[2024-02-01 15:33] VITALS: BP 128/67; PULSE 66; TEMP 98.2
[2024-02-01] MEDS: ATORVASTATIN 40 MG TAB PO STA (18:05)
--- NOTE | 2024-02-01 18:22 | P.CRDCN ---
History of Present Illness History of present illness: Dr. Turcios dictating on this 63-year-old female Mrs. Cavanaugh This is my patient who follows me in the office. Her has pancreatic cancer and she is under a lot of stress on account of this and takes him to [place] for chemotherapy. He was recently admitted with ketoacidosis there Yesterday she started experiencing localized discomfort on the right side of the chest close to the costochondral junction. That spot is a bit tender. It has been ongoing since yesterday She also had palpitations and her Apple Watch shows A-fib. The heart rate was mildly elevated Her first twelve-lead EKG showed sinus mechanism with normal ST segments 3 troponins are normal D-dimer is normal Past history of paroxysmal A-fib and hypertension and hypothyroidism Her Timmy Vasc score is 2 On examination blood pressure 148/97 138/76 mmHg pulse rate is in the 60s and 70s afebrile Breath sounds are clear no rhonchi or crackles Heart sounds are normal No lower extremity edema She is sitting comfortably in a chair Follow-up twelve-lead EKG shows sinus rhythm with a 0.[address] depression Cardiac enzymes are normal Labs are completely normal Impression Atypical chest discomfort with 3 normal cardiac enzymes Paroxysmal atrial fibrillation Hypothyroidism Hypertension Increased stress at home on account of her 's pancreatic cancer treatment Suggest The patient may go home today I added rosuvastatin 20 mg p.o. daily to her current regimen along with a baby aspirin I will see here in early February and we will set her up for further cardiac workup Past Medical History Past Medical History: Hypertension, Supraventricular Tachycardia (SVT), Thyroid Disorder Additional Past Medical History / Comment(s): Hypothyroidism, cardiac arrhythmia, seasonal allergies, sinus problems. 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 Pt is BRCA neg, CHEK2 neg. History of Any Multi-Drug Resistant Organisms: None Reported Past Surgical History: Adenoidectomy, Breast Surgery, Section, Hernia Repair, Tonsillectomy Additional Past Surgical History / Comment(s): Colonoscopy 2019(2nd, next 10yrs). Abdominal hernia repair 2018. section x2. Benign breast biopsy, septum repair Past Anesthesia/Blood Transfusion Reactions: No Reported Reaction Past Psychological History: No Psychological Hx Reported Smoking Status: Never smoker Past Alcohol Use History: Occasional Past Drug Use History: None Reported - Past Family History Sister(s) Family Medical History: Cancer Additional Family Medical History / Comment(s): Breast cancer in 2 sisters. One tested positive for CHEK2 mutation. 2 sisters are , one of which had breast cancer the other had brain cancer. Father Family Medical History: Cancer Additional Family Medical History / Comment(s): Prostate cancer. Mother Family Medical History: Cancer, Diabetes Mellitus Additional Family Medical History / Comment(s): Uterine cancer. Medications and Allergies Home Medications Medication Instructions Recorded Confirmed Type lisinopriL [Zestril] 20 mg PO HS 12/07/14 02/01/24 History Metoprolol Succinate (ER) [Toprol 25 mg PO DAILY 06/30/17 02/01/24 History XL] Levothyroxine Sodium [Synthroid] 125 mcg PO DAILY 02/01/24 02/01/24 History Allergies Allergy/AdvReac Type Severity Reaction Status Date / Time Penicillins Allergy Rash/Hives Verified 02/01/24 09:01 Sulfa (Sulfonamide Allergy Rash/Hives Verified 02/01/24 09:01 Antibiotics) sulfamethoxazole Allergy Rash/Hives Verified 02/01/24 09:01 [From Bactrim] trimethoprim [From Bactrim] Allergy Rash/Hives Verified 02/01/24 09:01 clindamycin AdvReac c-diff Verified 02/01/24 09:01 codeine AdvReac Nausea & Verified 02/01/24 09:01 Vomiting Physical Exam Vitals: Vital Signs Temp Pulse Pulse Resp BP BP Pulse Ox 02/01/24 15:05 98.2 F 66 17 128/67 98 02/01/24 10:41 97.6 F 59 L 17 135/84 100 02/01/24 09:43 68 18 138/76 96 02/01/24 07:44 97.4 F L 79 18 148/97 99 Intake and Output 02/01/24 02/01/24 02/01/24 06:59 14:59 22:59 Intake Total 340 236 Balance 340 236 Intake: Oral 340 236 Other: # Voids 1 2 # Bowel Movements 0 Weight 104.326 kg Results 02/01/24 08:05 02/01/24 08:05 Cardiac Enzymes 02/01/24 02/01/24 02/01/24 Range/Units 08:05 08:05 10:21 AST 25 (14-36) U/L Troponin I <0.012 <0.012 (0.000-0.034) ng/mL 02/01/24 Range/Units 12:24 AST (14-36) U/L Troponin I <0.012 (0.000-0.034) ng/mL Coagulation 02/01/24 Range/Units 08:05 PT 10.9 (10.0-12.5) sec APTT 24.9 (22.0-30.0) sec CBC 02/01/24 Range/Units 08:05 WBC 7.4 (3.8-10.6) k/uL RBC 5.04 (3.80-5.40) m/uL Hgb 14.2 (11.4-16.0) gm/dL Hct 43.9 (34.0-46.0) % Plt Count 240 (150-450) k/uL Comprehensive Metabolic Panel 02/01/24 Range/Units 08:05 Sodium 140 (137-145) mmol/L Potassium 3.8 (3.5-5.1) mmol/L Chloride 109 H (98-107) mmol/L Carbon Dioxide 23 (22-30) mmol/L BUN 12 (7-17) mg/dL Creatinine 0.67 (0.52-1.04) mg/dL Glucose 97 (74-99) mg/dL Calcium 9.8 (8.4-10.2) mg/dL AST 25 (14-36) U/L ALT 23 (4-34) U/L Alkaline Phosphatase 115 (38-126) U/L Total Protein 7.1 (6.3-8.2) g/dL Albumin 4.5 (3.5-5.0) g/dL Current Medications Generic Name Dose Route Start Last Admin Trade Name Freq PRN Reason Stop Dose Admin Aspirin 325 mg 02/02/24 09:00 Aspirin 325 Mg Tab PO DAILY KISHOR Famotidine 20 mg 02/01/24 21:00 Famotidine 20 Mg/2 Ml Vial IV Q12HR KISHOR Heparin Sodium (Porcine) 5,000 unit 02/01/24 21:00 Heparin Sodium,Porcine 5,000 Unit/Ml 1 Ml Vial SQ Q12HR KISHOR Levothyroxine Sodium 125 mcg 02/02/24 06:30 Levothyroxine 125 Mcg Tab PO DAILY@0630 KISHOR Lisinopril 20 mg 02/01/24 21:00 Lisinopril 20 Mg Tab PO HS KISHOR Metoprolol Succinate 25 mg 02/02/24 09:00 Metoprolol Succinate (Er) 25 Mg Tab.Er.24h PO DAILY KISHOR Nitroglycerin 0.4 mg 02/01/24 09:12 Nitroglycerin Sl Tabs 0.4 Mg Tab SUBLINGUAL Q5M PRN Chest Pain Intake and Output 02/01/24 02/01/24 02/01/24 06:59 14:59 22:59 Intake Total 340 236 Balance 340 236 Intake: Oral 340 236 Other: # Voids 1 2 # Bowel Movements 0 Weight 104.326 kg Patient Weight 02/02/24 06:59 Weight 104.326 kg 02/01/24 08:05 02/01/24 08:05
[2024-02-01] MEDS ORDERED: HEPARIN SODIUM,PORCINE 5,000 UNIT/ML 1 ML VIAL SQ SCH (21:00)
[2024-02-01] MEDS ORDERED: lisinopriL 20 MG TAB PO SCH (21:00)
[2024-02-01] MEDS ORDERED: FAMOTIDINE 20 MG/2 ML VIAL IV SCH (21:00)
[2024-02-02] MEDS ORDERED: LEVOTHYROXINE 125 MCG TAB PO SCH (06:30)
[2024-02-02] MEDS ORDERED: METOPROLOL SUCCINATE (ER) 25 MG TAB.ER.24H PO SCH (09:00)
[2024-02-02] MEDS ORDERED: ASPIRIN 325 MG TAB PO SCH (09:00)
== END 2024-02-01 18:37 | disposition home or self-care (01) ==
LOC: EC 07:42 → 6NMEDSUR 09:11
PROVIDERS: ADMIT Hospitalist; ATTEND Hospitalist
DX: R07.89 Other chest pain (principal); I10 Essential (primary) hypertension; I48.0 Paroxysmal atrial fibrillation; E03.9 Hypothyroidism, unspecified; F43.9 Reaction to severe stress, unspecified; Z79.890 Hormone replacement therapy; Z88.0 Allergy status to penicillin; Z88.2 Allergy status to sulfonamides; Z88.1 Allergy status to other antibiotic agents; Z88.5 Allergy status to narcotic agent; Z79.899 Other long term (current) drug therapy
CPT/HCPCS: 99285; 36415; 93005; 85379; 80053; 83735; 84484; 85025; 85610; 85730; 71046; G0378

== ENCOUNTER → 2024-08-09 | Outpatient (CLI) | payer OTHER ==
[2024-08-09 08:28] VITALS: BP 153/83; PULSE 69; RESP 16; TEMP 98
--- NOTE | 2024-08-09 08:54 | P.HPOB ---
History of Present Illness H&P Date: 08/09/24 Chief Complaint: The patient is here for her routine gynecologic exam and ma mmogram. This is a 63-year-old G2, P2 with an LMP of 2010. The patient is without gynecologic complaints and denies any postmenopausal bleeding. Review of Systems Her weight has been stable over the past 1-1/2 years. Respiratory: Occasional allergy symptoms. She denies cardiac or GI problems. Past Medical History Past Medical History: Hypertension, Supraventricular Tachycardia (SVT), Thyroid Disorder Additional Past Medical History / Comment(s): Hypothyroidism, cardiac arrhythmia, seasonal allergies, sinus problems. 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 Pt is BRCA neg, CHEK2 neg. History of Any Multi-Drug Resistant Organisms: None Reported Past Surgical History: Adenoidectomy, Breast Surgery, Section, Hernia Repair, Tonsillectomy Additional Past Surgical History / Comment(s): Colonoscopy 2019(2nd, next 10yrs). Abdominal hernia repair 2018. section x2. Benign breast biopsy, septum repair Past Anesthesia/Blood Transfusion Reactions: No Reported Reaction Past Psychological History: No Psychological Hx Reported Smoking Status: Never smoker Past Alcohol Use History: Occasional (0-1 drink per month.) Past Drug Use History: None Reported Additional History: She has been since 1980 and is retired. Her was diagnosed with pancreatic cancer in 2023. She had her first grandchild in 2024. - Past Family History Sister(s) Family Medical History: Cancer Additional Family Medical History / Comment(s): Breast cancer in 2 sisters. One tested positive for CHEK2 mutation. 2 sisters are , one of which had breast cancer the other had brain cancer. Father Family Medical History: Cancer Additional Family Medical History / Comment(s): Prostate cancer. Mother Family Medical History: Cancer, Diabetes Mellitus Additional Family Medical History / Comment(s): Uterine cancer. Medications and Allergies Home Medications Medication Instructions Recorded Confirmed Type lisinopriL [Zestril] 20 mg PO HS 12/07/14 08/09/24 History Metoprolol Succinate (ER) [Toprol 25 mg PO DAILY 06/30/17 08/09/24 History XL] Aspirin EC [Ecotrin Low Dose] 81 mg PO DAILY #90 tab 02/01/24 08/09/24 Rx Levothyroxine Sodium [Synthroid] 125 mcg PO DAILY 02/01/24 08/09/24 History Cetirizine HCl [Zyrtec] 10 mg PO DAILY 08/09/24 08/09/24 History Garlic 100 mg PO DAILY 08/09/24 08/09/24 History Multivitamin [Multivitamins Adult 1 tab PO DAILY 08/09/24 08/09/24 History Gummies] Allergies Allergy/AdvReac Type Severity Reaction Status Date / Time Penicillins Allergy Rash/Hives Verified 08/09/24 08:23 Sulfa (Sulfonamide Allergy Rash/Hives Verified 08/09/24 08:23 Antibiotics) sulfamethoxazole Allergy Rash/Hives Verified 08/09/24 08:23 [From Bactrim] trimethoprim [From Bactrim] Allergy Rash/Hives Verified 08/09/24 08:23 clindamycin AdvReac c-diff Verified 08/09/24 08:23 codeine AdvReac Nausea & Verified 08/09/24 08:23 Vomiting Exam Vital Signs Temp Pulse Resp BP Pulse Ox 08/09/24 08:25 98 F 69 16 153/83 95 Intake and Output 08/08/24 08/09/24 08/09/24 22:59 06:59 14:59 Other: Weight 102.965 kg Height 5 feet 6 inches, weight 227 pounds, BMI 36.6. This is a well-developed well-nourished white female who is alert and oriented times 3 in no acute distress. HEENT: Within normal limits. NECK: Supple without mass or thyromegaly. CHEST AND LUNGS: Clear to auscultation. HEART: Regular rate and rhythm. BREASTS: Are without mass or discharge. AXILLARY EXAM: Negative for adenopathy. BACK: Negative for CVA tenderness. ABDOMEN: Soft, nontender, without palpable masses. PELVIC EXAM: Normal external genitalia with mild atrophy. Cervix and vagina appear normal with mild atrophy. There is no unusual discharge. There is no evidence of prolapse. The uterus is midposition, nongravid size and nontender. There are no palpable adnexal masses or tenderness. RECTAL EXAM: Rectovaginal exam is negative for mass or tenderness and is negative for occult blood. EXTREMITIES: Nontender. IMPRESSION: 1. 63-year-old menopausal female with normal gynecologic exam. 2. History of osteopenia. 3. Strong history of breast cancer in her family with multiple sisters who have had breast cancer. 4. Elevated blood pressure with history of chronic hypertension. PLAN: 1. Pap smear was deferred since she had a negative Pap smear cotest on 11/12/2021. 2. Self breast awareness was discussed with the patient. We have also discussed symptoms associated with inflammatory breast cancer. 3. Screening mammogram will be done today. 4. Osteoporosis prevention was discussed. I have stressed the importance of adequate calcium, vitamin D and regular exercise. Recommended amounts of calcium and vitamin D were also discussed. She will repeat her bone density test in 1 year. 5. We have discussed her elevated blood pressure. I recommended that she check her own blood pressures at home on a regular basis since she does have a blood pressure cuff. She will follow-up with her PCP for blood pressure elevations. 6. Her lifetime breast cancer risk is 26.1% based on her history and family history. We have discussed doing yearly MRIs in addition to yearly mammograms. She has not yet done the MRI of the breast, but she would like to know in the near future. The order slip was given to the patient. She will have this done in about 6 months. We will alternate MRIs of the breast and mammograms every 6 months. 7. She was advised to return in one year for her annual well woman exam.
--- NOTE | 2024-08-09 11:25 | MM ---
Reason for Exam: Screening (asymptomatic). Last mammogram was performed 1 year(s) and 9 month(s) ago. Patient History: Menarche at age 13. First Full-Term at age 29. Postmenopausal. Patient has history of breast feeding. Patient used Hormonal Contraceptives for 12 years. Cyst Aspiration on the Right side. 08/07/1999, Benign Excisional Biopsy on the right side. Sister had breast cancer, age 66. Sister had breast cancer, age 50. Risk Values: Darcy 5 year model risk: 6.4%. NCI Lifetime model risk: 24.7%. Prior Study Comparison: 09/24/2020 Bilateral Screening Mammogram, [facility]. 11/12/2021 Bilateral MG 3D screening mammo w/cad, [facility]. 11/25/2022 Bilateral MG 3D screening mammo w/cad, [facility]. Tissue Density: There are scattered areas of fibroglandular density. Findings: Analyzed By CAD. Chronic nodularity on the left. There is no suspicious group of microcalcifications or new suspicious mass in either breast. Overall Assessment: Benign, BI-RAD 2 Management: Screening Mammogram of both breasts in 1 year. SEE NOTE BELOW IN REGARDS TO THE PATIENT'S INCREASED 5 YEAR DARCY SCORE AND INCREASED LIFETIME RISK SCORE. Patient should continue monthly self-breast exams. A clinical breast exam by your physician is recommended on an annual basis. This exam should not preclude additional follow-up of suspicious palpable abnormalities. Note on Darcy scores and lifetime risk: 1. A Darcy score greater than 3% is considered moderate risk. If this is the case, consider specialist referral to assess eligibility for a risk reducing agent. 2. If overall lifetime risk for the development of breast cancer is 20% or higher, the patient may qualify for future screening with alternating mammogram and breast MRI. [facility], , 08/09/2024 11:23 AM. Electronically signed and approved by: Love Souza M.D. Radiologist
== END ==
LOC: WWCWWP 08:05
PROVIDERS: ATTEND Obstetrics & Gynecology
DX: Z01.419 Encounter for gynecological examination (general) (routine) without abnormal findings (principal); Z12.31 Encounter for screening mammogram for malignant neoplasm of breast; I10 Essential (primary) hypertension; Z87.39 Personal history of other diseases of the musculoskeletal system and connective tissue; Z80.3 Family history of malignant neoplasm of breast; Z88.0 Allergy status to penicillin; Z88.1 Allergy status to other antibiotic agents; Z88.2 Allergy status to sulfonamides; Z88.5 Allergy status to narcotic agent
CPT/HCPCS: 77063; 77067